=== PATIENT | male | born 1985 | race Caucasian/White ===

== ENCOUNTER 2020-12-09 17:37 | Emergency (ER) | payer OTHER ==
[2020-12-09] MEDS ORDERED: Sodium Chloride 0.9% 1,000 ML IV ONE (17:40)
[2020-12-09] MEDS ORDERED: Morphine 4 MG/ML Syringe IVPUSH ONE ×2 (17:40→18:03)
[2020-12-09] MEDS ORDERED: Morphine 4 MG/ML Syringe ONE (17:44)
--- NOTE | 2020-12-09 17:44 | EDM.PDOC ---
ED HPI GENERAL MEDICAL PROBLEM - General Source of Information: Reports: Patient History Limitations: Reports: No Limitations <Richardson Levine - Last Filed: 12/09/20 18:59> <Mitchel Washington - Last Filed: 12/09/20 20:26> - General Chief Complaint: Trauma Stated Complaint: TRAUMA ALERT Time Seen by Provider: 12/09/20 17:40 - History of Present Illness INITIAL COMMENTS - FREE TEXT/NARRATIVE: 35-year-old male no past medical history presents as a trauma alert. Patient was working at the top of a roughly 12 foot ladder when he fell backwards. He does not think that he hit his head and denies loss of consciousness. Patient notes pain in his left wrist which is air splinted by EMS. There is reported overt deformity to the wrist. Patient denies neck or back pain. Denies abdominal pain. He states that he wanted to walk afterwards but he was told not to walk so he has not ambulated after the fall. (Richardson Levine) Review of Systems - Review of Systems Review Of Systems: Comprehensive ROS is negative, except as noted in HPI. <Richardson Levine - Last Filed: 12/09/20 18:59> ED EXAM, GENERAL - Physical Exam Exam: See Below Exam Limited By: No Limitations General Appearance: Alert, WD/WN, No Apparent Distress Eye Exam: Bilateral Eye: EOMI, PERRL Ears: Hearing Grossly Normal Throat/Mouth: Normal Voice, No Airway Compromise Head: Atraumatic, Normocephalic Neck: Normal Inspection, Supple, Non-Tender Respiratory/Chest: No Respiratory Distress, Lungs Clear, Normal Breath Sounds, No Accessory Muscle Use Cardiovascular: Normal Peripheral Pulses, Regular Rate, Rhythm GI/Abdominal: Soft, Non-Tender Back Exam: Normal Inspection Extremities: Other (deformity of L wrist, difficult to assess in air splint, palpable radial pulse, 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, will reeval after emergent imaging, no deformities to LE b/l and normal ROM LE b/l, no deformities and normal ROM RUE) Neurological: Alert, Oriented Psychiatric: Normal Affect, Normal Mood Skin Exam: Warm, Dry, Intact, Normal Color <Richardson Levine - Last Filed: 12/09/20 18:59> ED TRAUMA PROCEDURES - Joint Reduction Left Wrist Sedation: Conscious Sedation Pre-Procedure NV Status: Normal Post-Procedure NV Status: Normal Technique: Traction/Counter Traction Number of Attempts: 1 Post-Reduction Imaging: Acceptably Reduced Joint Reduction Complications: No <Richardson Levine - Last Filed: 12/09/20 18:59> - Additional/Other Procedure(s) Other (Free Text) Procedure(s): Patient was consciously sedated utilizing 100 mg of propofol. He was npo from 2 PM. Patient tolerated procedure without complications (Richardson Levine) Course <Richardson Levine - Last Filed: 12/09/20 18:59> <Mitchel Washington - Last Filed: 12/09/20 20:26> - Vital Signs Last Recorded V/S: Last Vital Signs Temp 98.2 F 12/09/20 19:47 Pulse 84 12/09/20 19:47 Resp 18 12/09/20 19:47 BP 132/78 12/09/20 19:47 Pulse Ox 98 12/09/20 19:47 - Orders/Labs/Meds Orders: Active Orders 24 hr Category Date Time Status PATIENT RETYPE [BBK] Routine Lab 12/09/20 20:21 Ordered UA W/LILLIAN RFLX IF INDICATED [URIN] Stat Lab 12/09/20 17:40 Ordered Saline Lock Insert [OM.PC] Stat Oth 12/09/20 17:40 Ordered Labs: Laboratory Tests 12/09/20 12/09/20 12/09/20 Range/Units 17:40 17:40 17:40 WBC 8.44 (4.0-11.0) K/uL RBC 5.31 (4.50-5.90) M/uL Hgb 16.4 (13.0-17.0) g/dL Hct 47.6 (38.0-50.0) % MCV 89.6 (80.0-98.0) fL MCH 30.9 (27.0-32.0) pg MCHC 34.5 (31.0-37.0) g/dL RDW Std Deviation 44.7 (28.0-62.0) fl RDW Coeff of Bharath 14 (11.0-15.0) % Plt Count 219 (150-400) K/uL MPV 9.40 (7.40-12.00) fL Neut % (Auto) 51.9 (48.0-80.0) % Lymph % (Auto) 36.4 (16.0-40.0) % [place] % (Auto) 7.3 (0.0-15.0) % Eos % (Auto) 3.8 (0.0-7.0) % Baso % (Auto) 0.6 (0.0-1.5) % Neut # (Auto) 4.4 (1.4-5.7) K/uL Lymph # (Auto) 3.1 H (0.6-2.4) K/uL [place] # (Auto) 0.6 (0.0-0.8) K/uL Eos # (Auto) 0.3 (0.0-0.7) K/uL Baso # (Auto) 0.1 (0.0-0.1) K/uL Nucleated RBC % 0.0 /100WBC Nucleated RBCs # 0 K/uL INR 0.99 APTT 21.5 (18.6-31.3) SEC Sodium 140 (136-148) mmol/L Potassium 3.7 (3.5-5.1) mmol/L Chloride 106 (98-107) mmol/L Carbon Dioxide 23.0 (21.0-32.0) mmol/L BUN 16 (7.0-18.0) mg/dL Creatinine 0.9 (0.8-1.3) mg/dL Est Cr Clr Drug Dosing TNP Estimated GFR (MDRD) > 60.0 ml/min Glucose 112 H (74-106) mg/dL Calcium 8.0 L (8.5-10.1) mg/dL Magnesium 1.9 (1.8-2.4) mg/dL Total Bilirubin 0.4 (0.2-1.0) mg/dL AST 44 H (15-37) IU/L ALT 51 (14-63) IU/L Alkaline Phosphatase 97 (46-116) U/L Troponin I < 0.050 (0.000-0.056) ng/mL Total Protein 7.4 (6.4-8.2) g/dL Albumin 4.0 (3.4-5.0) g/dL Globulin 3.4 (2.6-4.0) g/dL Albumin/Globulin Ratio 1.2 (0.9-1.6) Lipase 49 L (73-393) U/L Blood Type Antibody Screen 12/09/20 Range/Units 18:44 WBC (4.0-11.0) K/uL RBC (4.50-5.90) M/uL Hgb (13.0-17.0) g/dL Hct (38.0-50.0) % MCV (80.0-98.0) fL MCH (27.0-32.0) pg MCHC (31.0-37.0) g/dL RDW Std Deviation (28.0-62.0) fl RDW Coeff of Bharath (11.0-15.0) % Plt Count (150-400) K/uL MPV (7.40-12.00) fL Neut % (Auto) (48.0-80.0) % Lymph % (Auto) (16.0-40.0) % [place] % (Auto) (0.0-15.0) % Eos % (Auto) (0.0-7.0) % Baso % (Auto) (0.0-1.5) % Neut # (Auto) (1.4-5.7) K/uL Lymph # (Auto) (0.6-2.4) K/uL [place] # (Auto) (0.0-0.8) K/uL Eos # (Auto) (0.0-0.7) K/uL Baso # (Auto) (0.0-0.1) K/uL Nucleated RBC % /100WBC Nucleated RBCs # K/uL INR APTT (18.6-31.3) SEC Sodium (136-148) mmol/L Potassium (3.5-5.1) mmol/L Chloride (98-107) mmol/L Carbon Dioxide (21.0-32.0) mmol/L BUN (7.0-18.0) mg/dL Creatinine (0.8-1.3) mg/dL Est Cr Clr Drug Dosing Estimated GFR (MDRD) ml/min Glucose (74-106) mg/dL Calcium (8.5-10.1) mg/dL Magnesium (1.8-2.4) mg/dL Total Bilirubin (0.2-1.0) mg/dL AST (15-37) IU/L ALT (14-63) IU/L Alkaline Phosphatase (46-116) U/L Troponin I (0.000-0.056) ng/mL Total Protein (6.4-8.2) g/dL Albumin (3.4-5.0) g/dL Globulin (2.6-4.0) g/dL Albumin/Globulin Ratio (0.9-1.6) Lipase (73-393) U/L Blood Type O POSITIVE Antibody Screen NEGATIVE Meds: Medications Discontinued Medications Generic Name Dose Route Start Last Admin Trade Name Cyn PRN Reason Stop Dose Admin Fentanyl 100 mcg 12/09/20 18:21 12/09/20 18:27 Fentanyl 50 Mcg/Ml Sdv IVPUSH 12/09/20 18:22 100 mcg ONETIME ONE Administration Sodium Chloride 1,000 mls @ 999 mls/hr 12/09/20 17:40 12/09/20 17:49 Normal Saline IV 12/09/20 18:40 999 mls/hr .Bolus ONE Administration Iopamidol 100 ml 12/09/20 18:29 12/09/20 18:30 Iopamidol 755 Mg/Ml 500 Ml Multipack Bottle IVPUSH 12/09/20 18:30 100 ml ONETIME STA Administration Morphine Sulfate 4 mg 12/09/20 17:40 12/09/20 17:50 Morphine 4 Mg/Ml Syringe IVPUSH 12/09/20 17:41 4 mg ONETIME ONE Administration Morphine Sulfate Confirm 12/09/20 17:44 12/09/20 17:50 Morphine 4 Mg/Ml Syringe Administered 12/09/20 17:45 Not Given Dose 4 mg .ROUTE .STK-MED ONE Morphine Sulfate 4 mg 12/09/20 18:03 12/09/20 18:22 Morphine 4 Mg/Ml Syringe IVPUSH 12/09/20 18:04 4 mg ONETIME ONE Administration Propofol 120 mg 12/09/20 18:42 12/09/20 18:46 Propofol 200 Mg/20 Ml Sdv IVPUSH 12/09/20 18:43 120 mg ONETIME ONE Administration Propofol Confirm 12/09/20 18:45 12/09/20 18:51 Propofol 200 Mg/20 Ml Sdv Administered 12/09/20 18:46 Not Given Dose 200 mg .ROUTE .STK-MED ONE - Re-Assessments/Exams Free Text/Narrative Re-Assessment/Exam: 12/09/20 18:07 Considering mechanism will get extensive CT imaging to rule out pathology. Patient does have an overt left wrist deformity which will be evaluated after emergent CT imaging. Analgesia has been given. 12/09/20 18:19 On reassessment of patient's left wrist he has no overt deformity. 12/09/20 18:29 We did call anesthesia for emergent reduction of left wrist. He does have a faint palpable radial pulse but no excavating contractor strength. (Richardson Levine) 12/09/20 20:22 Patient Sinadrin from previous viral pending repeat x-ray. Repeat x-ray shows better alignment. Patient was evaluated by my previous attending after the reduction which show improved pulse. We will discharge patient having follow-up with orthopedics as an outpatient. (Mitchel Washington) Departure <Richardson Levine - Last Filed: 12/09/20 18:59> - Departure Time of Disposition: 20:23 Condition: Good - Discharge Information *PRESCRIPTION DRUG MONITORING PROGRAM REVIEWED*: Not Applicable *COPY OF PRESCRIPTION DRUG MONITORING REPORT IN PATIENT PAXTON: Not Applicable <Mitchel Washington - Last Filed: 12/09/20 20:26> - Departure Disposition: Home, Self-Care 01 Clinical Impression: Fall from ladder, Wrist fracture - Discharge Information Instructions: Wrist Fracture Treated With Immobilization, [id number] Forms: ED Department Discharge Additional Instructions: Please follow up with your primary care physician. If you do not have a primary care physician, see below: [facility] - Orthopedic Clinic Professional Building [address] [place] [address], [address] [place] [address] Orthopedic Surgery [place] [id number] [place] [address] [address], [address] Floor Above is the number to call to follow-up with the bone physicians. We placed a number for Jacky, we would like you to call them tomorrow to schedule an appointment. We also put the number above for a bone doctor in [place] however they are not always in town may not be available. Again it is important you call to schedule his appointment tomorrow. If you have any other concerning signs or symptoms please return to the ED. [place] est el nmero para llamar para hacer un seguimiento con los mdicos de huesos. Colocamos un nmero para Lewis, nos gustara que los llamara maana para programar mel boogie. Paoloterrence ponemos el nmero de arriba para un mdico de huesos en [place], sin embargo, no siempre estn en la ciudad, es posible que no estn disponibles. Nuevamente, es importante que llame para programar cedeno boogie maana. Si tiene otros signos o sntomas preocupantes, regrese al servicio de urgencias. The following information is given to patients seen in the emergency department who are being discharged to home. This information is to outline your options for follow-up care. We provide all patients seen in our emergency department with a follow-up referral. The need for follow-up, as well as the timing and circumstances, are variable depending upon the specifics of your emergency department visit. If you don't have a primary care physician on staff, we will provide you with a referral. We always advise you to contact your personal physician following an emergency department visit to inform them of the circumstance of the visit and for follow-up with them and/or the need for any referrals to a consulting specialist. The emergency department will also refer you to a specialist when appropriate. This referral assures that you have the opportunity for follow-up care with a specialist. All of these measure are taken in an effort to provide you with opt imal care, which includes your follow-up. Under all circumstances we always encourage you to contact your private physician who remains a resource for coordinating your care. When calling for follow-up care, please make the office aware that this follow-up is from your recent emergency room visit. If for any reason you are refused follow-up, please contact the [facility] Emergency Department at and asked to speak to the emergency department charge nurse. Sepsis Event Note (ED) - Focused Exam Vital Signs: Vital Signs Temp Pulse Resp BP Pulse Ox 12/09/20 19:47 98.2 F 84 18 132/78 98 12/09/20 19:15 98.2 F 82 18 128/73 98 12/09/20 19:00 78 20 133/73 98 12/09/20 18:45 98.3 F 78 18 144/73 H 98 12/09/20 18:30 77 20 128/73 98
[2020-12-09 18:16] LABS: BLOOD UREA NITROGEN,BUN 16 mg/dL (7.0-18.0); CHLORIDE,CL 106 mmol/L (98-107); GLUCOSE RANDOM 112 mg/dL (74-106); LIPASE 49 U/L (73-393); POTASSIUM,K 3.7 mmol/L (3.5-5.1); SODIUM,NA 140 mmol/L (136-148)
[2020-12-09] MEDS ORDERED: fentaNYL 50 MCG/ML SDV IVPUSH ONE (18:21)
[2020-12-09] MEDS ORDERED: Iopamidol 755 MG/ML 500 ML Multipack Bottle IVPUSH STA (18:29)
--- NOTE | 2020-12-09 18:30 | CT ---
INDICATION: Trauma TECHNIQUE: CT cervical spine without contrast. COMPARISON: None FINDINGS: Vertebral alignment: Alignment is normal. Vertebrae: There are no fractures or suspicious bony lesions. Discs and facet joints: Disc spaces and facets are within normal limits. Extraspinal findings: Prevertebral soft tissues, visualized airway, and visualized lungs are unremarkable. IMPRESSION: No evidence of acute cervical spine trauma. Please note that all CT scans at this facility use dose modulation, iterative reconstruction, and/or weight-based dosing when appropriate to reduce radiation dose to as low as reasonably achievable. Dictated by Damon Viera MD @ 12/09/2020 6:28:36 PM (Electronically Signed)
--- NOTE | 2020-12-09 18:32 | CT ---
INDICATION: Trauma TECHNIQUE: CT head without contrast. COMPARISON: None FINDINGS: CSF spaces: Within normal limits for age. Brain parenchyma: The fish-white differentiation is normal. No sign of mass, hemorrhage, or midline shift. Skull base and calvarium: The visualized paranasal sinuses and mastoid air cells demonstrate no acute or significant findings. The visualized orbits are grossly unremarkable. No skull fractures. IMPRESSION: Atraumatic appearance of the brain. Please note that all CT scans at this facility use dose modulation, iterative reconstruction, and/or weight-based dosing when appropriate to reduce radiation dose to as low as reasonably achievable. Dictated by Damon Viera MD @ 12/09/2020 6:30:51 PM (Electronically Signed)
[2020-12-09] MEDS ORDERED: Propofol 200 MG/20 ML SDV IVPUSH ONE (18:42)
[2020-12-09] MEDS ORDERED: Propofol 200 MG/20 ML SDV ONE (18:45)
--- NOTE | 2020-12-09 18:45 | CT ---
INDICATION: Trauma. TECHNIQUE: CT chest, abdomen and pelvis acquired with 100 cc Isovue 370 IV contrast. COMPARISON: None. FINDINGS: CHEST: Cardiovascular structures: Heart size is normal. Thoracic aorta and main pulmonary artery are normal in caliber. Mediastinum and em: Wispy densities in the anterior mediastinum could represent residual thymic tissue or be contusion. No mass or lymphadenopathy. Normal thyroid gland. Lungs and pleura: Lungs and pleural spaces are clear. No suspicious nodules, infiltrates, or effusions. Chest wall and axilla: No mass or adenopathy. Bones: No acute fracture or dislocation. ABDOMEN AND PELVIS: Liver: Unremarkable. No sign of acute injury. Gallbladder and bile ducts: Unremarkable. Pancreas: Unremarkable. Spleen: Unremarkable. No sign of acute injury. Adrenal glands: Unremarkable. Kidneys: Unremarkable. GI tract: Unremarkable. Vascular structures: Unremarkable. Mesenteric arteries are patent. Lymph nodes: Unremarkable. Miscellaneous: Unremarkable. No free air or significant free fluid. Pelvic Organs: Unremarkable. Bones: No acute fracture or dislocation. IMPRESSION: Small densities in the anterior mediastinum could represent residual thymic tissue or a contusion. Otherwise unremarkable CT of the chest, abdomen and pelvis. No other sign of acute injury or significant disease. However, assessment of the abdomen and pelvis is somewhat limited secondary to patient motion. Please note that all CT scans at this facility use dose modulation, iterative reconstruction, and/or weight-based dosing when appropriate to reduce radiation dose to as low as reasonably achievable. Dictated by Butch Saleh MD @ 12/09/2020 6:45:12 PM (Electronically Signed)
--- NOTE | 2020-12-09 18:49 | CT ---
INDICATION: Trauma. TECHNIQUE: CT thoracic spine without contrast. COMPARISON: None FINDINGS: Vertebral alignment: Alignment is normal. Vertebrae: There are no fractures or suspicious bony lesions. Discs and facet joints: Disc spaces and facets are within normal limits. Extraspinal findings: Prevertebral soft tissues, visualized airway, and visualized lungs are unremarkable. IMPRESSION: Unremarkable thoracic spine CT. No sign of acute injury. Please note that all CT scans at this facility use dose modulation, iterative reconstruction, and/or weight-based dosing when appropriate to reduce radiation dose to as low as reasonably achievable. Dictated by Butch Saleh MD @ 12/09/2020 6:48:37 PM (Electronically Signed)
--- NOTE | 2020-12-09 18:53 | CT ---
INDICATION: Trauma. TECHNIQUE: CT lumbar spine without contrast. COMPARISON: None FINDINGS: Vertebrae: Alignment is normal. There are no fractures or suspicious bony lesions. Discs and facet joints: Disc spaces and facets are within normal limits. Extraspinal findings: Prevertebral soft tissues and visualized retroperitoneum are unremarkable. IMPRESSION: Unremarkable lumbar spine CT. No sign of acute injury. Please note that all CT scans at this facility use dose modulation, iterative reconstruction, and/or weight-based dosing when appropriate to reduce radiation dose to as low as reasonably achievable. Dictated by Butch Saleh MD @ 12/09/2020 6:53:12 PM (Electronically Signed)
--- NOTE | 2020-12-09 19:25 | CR ---
INDICATION: Trauma. COMPARISON: None. TECHNIQUE: Two views of the left wrist. FINDINGS: There is an acute comminuted displaced distal radius fracture. Fracture extends to involve the articular surface. The distal radius fracture fragment and carpus are displaced dorsally with respect to the radial shaft. There is a displaced ulnar styloid fracture. Soft tissue swelling about the wrist. - IMPRESSION: 1. Acute, comminuted, intra-articular displaced distal radius fracture. 2. Displaced ulnar styloid fracture. Dictated by Nick Gaston MD @ 12/09/2020 7:24:42 PM Dictated by: Nick Gaston MD @ 12/09/2020 19:24:48 (Electronically Signed)
--- NOTE | 2020-12-09 20:05 | CR ---
HISTORY: Fall off of a ladder. TECHNIQUE: Left shoulder 2 views. COMPARISON: None. FINDINGS: No fracture. No dislocation. Glenohumeral joint is maintained. AC joint is maintained. IMPRESSION: No bone abnormality. Dictated by Felton Rodriguez MD @ 12/09/2020 8:04:04 PM (Electronically Signed)
--- NOTE | 2020-12-09 20:07 | CR ---
HISTORY: Fall from a ladder. Post reduction. TECHNIQUE: Left wrist 2 views. COMPARISON: Wrist radiographs same day. FINDINGS: New splint material. Improved alignment of dorsally angulated acute fracture of the distal radius. Improved alignment of mildly displaced fracture of the ulnar styloid. No new abnormality. IMPRESSION: Improved alignment of distal radius and ulna fractures. Dictated by Felton Rodriguez MD @ 12/09/2020 8:05:38 PM (Electronically Signed)
--- NOTE | 2020-12-09 20:09 | CR ---
HISTORY: Fall from a ladder. TECHNIQUE: Right elbow 2 views. COMPARISON: None. FINDINGS: Soft tissue swelling over the dorsal elbow. Thin slightly curved ossicle immediately adjacent to the medial humeral epicondyle. No dislocation. Joint spaces are maintained. IMPRESSION: Ossicle immediately adjacent to the medial humeral condyle is favored to be chronic and related to common flexor tendinopathy. Nondisplaced acute fracture is less likely but not excluded. Soft tissue swelling at the elbow. Dictated by Felton Rodriguez MD @ 12/09/2020 8:08:25 PM (Electronically Signed)
== END 2020-12-09 20:55 | disposition home or self-care (01) ==
LOC: MW.ED 17:37 → EDBD 17:37 → MW.ED 20:55
DX: S52.592A Other fractures of lower end of left radius, initial encounter for closed fracture (principal); S52.612A Displaced fracture of left ulna styloid process, initial encounter for closed fracture; W11.XXXA Fall on and from ladder, initial encounter
CPT/HCPCS: 25605; 36415; 70450; 71260; 72125; 73030; 73070; 73100; 74177; 80053; 83690; 83735; 84484; 85025; 85610; 85730; 86850; 86900; 86901; 96374; 96375; 99284; J2270; J2704; J3010; J7030; Q9967; 72128-26; 72131-26